=== PATIENT | male | born 1955 | race Two or more races ===

== ENCOUNTER 2020-08-19 09:23 | Outpatient (CLI) | payer OTHER | END 2020-08-19 09:25 | disposition home or self-care (01) | LOC: RAD 09:23 | PROVIDERS: ATTEND Radiology Diagnostic Radiology | DX: S23.41XA Sprain of ribs, initial encounter (principal) ==

== ENCOUNTER 2022-10-07 07:32 | Outpatient (CLI) | payer OTHER | END 2022-10-07 08:00 | disposition home or self-care (01) | LOC: MRI 07:32 | DX: R55 Syncope and collapse (principal) | CPT/HCPCS: 70553; Q9965; 70552 ==

== ENCOUNTER 2023-11-12 12:16 | Outpatient (CLI) | payer OTHER | END 2023-11-12 12:22 | disposition home or self-care (01) | LOC: RAD 12:16 | DX: Z01.812 Encounter for preprocedural laboratory examination (principal) ==